=== PATIENT | male | born 1965 | race Caucasian/White ===

== ENCOUNTER 2017-05-19 05:29 | Day surgery (SDC) | payer BC ==
[2017-05-19] VITALS (14 sets, daily range): BP systolic 104–138; BP diastolic 63–86; Ht 188 cm; Wt 100.0 kg
[~2017-05-19] VITALS: Ht 188 cm; Wt 100.0 kg
[~2017-05-19 05:29] MED LIST: BETAPACE 80 MG80 MG PO; COZAAR50 MG PO; HEMOCYTE PLUS C1 CAP PO; IMITREX100 MG PO; LIPITOR40 MG PO; PROPRANOLOL HCL60 M1 PO; TOPROL XL50 MG PO; ZANTAC150 MG PO
[2017-05-19] MEDS ORDERED: LEVOTHYROXINE50 MCG PO (07:00)
[2017-05-19] MEDS ORDERED: TOPROL XL100 MG PO (07:00)
[2017-05-19] MEDS ORDERED: FAMOTIDINE10 MG PO (07:01)
--- NOTE | 2017-05-19 09:18 | NUR ---
LAB IDENTIFIES PARATHYROID BASED ON FROZEN SECTION SPECIMAN.
--- NOTE | 2017-05-19 10:58 | NUR ---
NO DRAIN PLACED
--- NOTE | 2017-05-19 11:59 | NUR ---
REC'D FROM OR VIA CART. TO ICU BED. CONNECTED TO MONITOR AND VS OBTAINED.
[2017-05-19 12:53] LABS: ANION GAP 5.7 mmol/L (8-16); CALCIUM 8.3 mg/dL (8.5-10.1); CARBON DIOXIDE 30.8 mmol/L (21.0-32.0); CREATININE - SERUM 1.5 mg/dL (0.6-1.3); MAGNESIUM - SERUM 1.9 mg/dL (1.8-2.4); PHOSPHOROUS 2.2 mg/dL (2.5-4.9); POTASSIUM - SERUM 4.5 mmol/L (3.5-5.1)
--- NOTE | 2017-05-19 13:10 | NUR ---
CALCIUM RESULTS PHONED TO DR. THOMPSON. NO NEW ORDERS.
--- NOTE | 2017-05-19 19:00 | NUR ---
SHIFT ASSESSMENT COMPLETE PER FLOWSHEET, SEE FOR DETAILS. PATIENT A&OX4, SITTING UP IN BED. DENIES PAIN AT THIS TIME. INCISION ON NECK, NO SWELLING NOTED. LUNG SOUNDS CLEAR, RR REGULAR, BILATERAL. O2 SAT > 95%. DENIES TROUBLE VOIDING. SCD'S ON. PERIPHERAL PULSES +2, BILATERAL. PIV TO LH INFUSING D5LR WITH 1AMP OF CALCIUM @ 50CC/HR. SITE C/D/I. UP TO AMBULATE AT THIS TIME, STEADY GATE NOTED. DENIES NEED, WILL MONITOR.
--- NOTE | 2017-05-19 21:00 | NUR ---
NIGHT MEDS GIVEN, DENIES NEED AT THIS TIME. VISITOR AT BEDSIDE.
--- NOTE | 2017-05-19 23:00 | NUR ---
REASSESSMENT COMPLETE, NO ACUTE CHANGES. DENIES NEED AT THIS TIME.
[2017-05-20] VITALS (8 sets, daily range): BP systolic 124–139; BP diastolic 76–91
--- NOTE | 2017-05-20 01:00 | NUR ---
RESTING IN BED, DENIES NEED. VSS.
--- NOTE | 2017-05-20 03:00 | NUR ---
REASSESSMENT COMPLETE. NO ACUTE CHANGES. SEE FLOWSHEET.
[2017-05-20 06:15] LABS: CALCIUM 8.7 mg/dL (8.5-10.1); CARBON DIOXIDE 30.1 mmol/L (21.0-32.0); CREATININE - SERUM 1.5 mg/dL (0.6-1.3); POTASSIUM - SERUM 4.1 mmol/L (3.5-5.1); THYROID STIMULATING HORMONE 1.14 uIU/mL (0.36-3.74)
[2017-05-20 06:35] LABS: PHOSPHOROUS 3.7 mg/dL (2.5-4.9)
--- NOTE | 2017-05-20 07:00 | NUR ---
UP AND AMBULATORY IN UNIT. SALINE LOCK TO L HAND. NECK DRESSING C/D/I. DENIES ANY NEEDS.
--- NOTE | 2017-05-20 09:30 | NUR ---
DR. THOMPSON HERE. ORDERS REC'D FOR DISCHARGE.
--- NOTE | 2017-05-20 09:45 | NUR ---
SALINE LOCK DC'D FROM L HAND. UNABLE TO PRINT DISCHARGE INSTRUCTIONS FOR PATIENT TO SIGN AFTER MULTIPLE ATTEMPTS. PRESCRIPTION GIVEN TO PATIENT TO FILL.
--- NOTE | 2017-05-20 09:55 | NUR ---
DISCHARGED HOME WITH MOTHER.
--- NOTE | 2017-05-23 11:52 | OP ---
PATIENT NAME: LEESA SANTIAGO MEDICAL RECORD: [id number] :69 LOCATION:[facility] ADMISSION DATE: SURGEON: VASYL THOMPSON MD DATE OF OPERATION: 05/19/2017 PREOPERATIVE DIAGNOSES: Hyperparathyroidism and Janae's thyroiditis with nontoxic multinodular goiter. OPERATION PERFORMED: Neck exploration with removal of a left superior parathyroid gland, which proved to be an adenoma and total thyroidectomy. SURGEON: Vasyl Thompson MD ANESTHESIA: General endotracheal per Dr. Cardona. 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 Biopsies have demonstrated Janae's thyroiditis. He also has hyperparathyroidism. He had a right lower parathyroid gland removed what was thought to be a right lower parathyroid gland removed in July of this year. Unfortunately, the frozen section, which demonstrated parathyroid adenoma was incorrect and subsequent permanent section diagnosis was lymphoid tissue, so no parathyroid tissue was actually successfully removed at that operation. He remained hyperparathyroid and has been treated by his frame sample and pattern supervisor, Dr. Magaña and his primary care doctor, Dr. Reed with Sensipar and some calcium supplementation I believe. He is brought to the hospital today as an outpatient for a neck exploration and hopefully removal of his parathyroid adenoma and a partial or total thyroidectomy. DESCRIPTION OF PROCEDURE: Under general endotracheal anesthesia in supine position, the patient was prepped and draped in a sterile manner and positioned with the neck hyperextended in the supine position. I made a necklace type incision incorporating the incision, which had been made on the right side of the neck at his previous operation. The electrocautery was used for hemostasis and to raise platysmal flaps. The strap muscles were in the midline and dissected first from the anterior surface of the left lobe of the thyroid. Dissection was done bluntly and with electrocautery anteriorly and whenever energy was necessary for coagulation or division of tissue at deeper layers, the Harmonic scalpel device was utilized. Hemostasis was obtained with occasional Hemoclip additionally with 3-0 ties and suture ligatures. The left lobe of the thyroid was mobilized as the left recurrent laryngeal nerve was clearly visualized. I noted what appeared to be normal parathyroid gland in the left inferior position. I continued to mobilize the parathyroid gland and found a tumor posterior to the upper pole of the thyroid, which was dissected free of the surrounding structures and proved to be typical parathyroid adenoma, although fairly large, I believe it measured 2.5 x 1.5 x 0.5 cm. It was removed in toto and sent for frozen section diagnosis. The frozen section and gross examination demonstrated parathyroid adenoma. I then continued dissection on the right side, the strap muscles from the anterior surface of the thyroid. This operation on the right side was more difficult due to scarring from prior surgery. I mobilized the right lobe of the thyroid and though with persistent dissection, I was unable to evaluate a normal sized parathyroid nor did I find any enlarged parathyroids. I noted that both the right and left lobes of the thyroid gland were multinodular and elected to go ahead with thyroidectomy trying to keep the dissection absolutely as close on to the OPERATIVE REPORT [id number] LEESA SANTIAGO thyroid capsule as possible so as not inadvertently remove any normal thyroid tissue. The superior pole vessels on the right were divided between clamps and ligated with Vicryl ties and the thyroid mobilized with blunt and sharp dissection and with the harmonic sears. The recurrent laryngeal nerve was protected. The thyroid was mobilized from the anterior surface of the trachea. Dissection on the left was then recommenced. I once again noted the normal-appearing parathyroid gland and the recurrent laryngeal nerve and then divided the superior pole vessels between clamps and ligated them with Vicryl, mobilize the parathyroid gland, and dissected it from the anterior surface of the trachea with primarily electrocautery dissection. The isthmus had a pyramidal lobe extending superiorly, which was removed as well. The entire thyroid was sent to pathology for histologic study. Hemostasis in the wound was obtained with the very minimal and very discrete use of electrocautery and some additional Hemoclips and Vicryl ties. I used Fibrillar hemostatic material in addition. I irrigated the wound and found hemostasis noted to be satisfactory and then approximated the strap muscles in the midline with interrupted 3-0 Vicryl. I did not use a drain. The wound was then at that superficial level infiltrated and irrigated with 0.25% Marcaine with epinephrine and the platysma was then approximated with interrupted inverted 3-0 Vicryl and skin was closed with running intracuticular 4-0 Monocryl and Dermabond glue. The incision additionally was dressed with Maxorb Ag, Tegaderm, and the Cavilon skin prep. The patient was awakened and extubated and in stable condition taken to the recovery room and kept in a head up or reverse Trendelenburg type position and an ice pack applied to his neck. The patient's speech was acceptable minimally hoarse after extubation and there was no sign of bleeding or swelling in the surgical wound. Blood loss during the operation was minimal certainly probably no more than 10 cc. None was replaced. All sponges, instruments, and needles were accounted for. No drain was utilized and the surgical specimens were the left upper parathyroid adenoma and the entire thyroid. I will plan to keep the patient in overnight observation and most likely discharge him to home tomorrow unless there is a problem. He will continue all the same medications. He will need obviously a higher dose of levothyroxine replacement and we will monitor his calcium level. TRANSINT:[id number] Voice Confirmation ID: [id number] DOCUMENT ID: [id number] VASYL THOMPSON MD at 1152 CC: ELOINA REED MD and EV MAGAÑA MD [id number] DICTATION DATE: 05/19/17 1259 DIRECTOR OF LEADERSHIP DEVELOPMENT: 05/19/17 1432 [facility] 05/20/17 [facility] [address] [place] [address]
== END 2017-05-20 09:55 | disposition home or self-care (01) ==
LOC: D.OPS 05:29 → D.CVICU 11:32 → D.OPS 05-20 09:55
PROVIDERS: Internal Medicine Nephrology; Surgery
DX: E21.0 Primary hyperparathyroidism (principal); D34 Benign neoplasm of thyroid gland; E06.3 Autoimmune thyroiditis; I10 Essential (primary) hypertension; Z01.812 Encounter for preprocedural laboratory examination; E04.2 Nontoxic multinodular goiter

== ENCOUNTER → 2019-04-03 07:17 | Outpatient (CLI) | payer BC ==
[2017-05-19 12:10] VITALS: BMI 28.3
[~2019-04-03 07:17] MED LIST changes: +FAMOTIDINE10 MG PO; +LEVOTHYROXINE50 MCG PO; +TOPROL XL100 MG PO
== END | disposition home or self-care (01) ==
LOC: D.CT 07:17
PROVIDERS: ATTEND Family Medicine
DX: I72.8 Aneurysm of other specified arteries (principal)